=== PATIENT | male | born 1955 | race Hispanic/Latino ===

== ENCOUNTER 2020-01-13 11:00 | Inpatient (IN) | payer BC ==
[2020-01-13 15:04] VITALS: BMI 28.8
[2020-01-19] MEDS ORDERED: Sodium Chloride 0.9% 100 ML ONE (10:02)
[2020-01-19] MEDS ORDERED: Tranexamic Acid 1,000 MG/10 ML VIAL ONE (10:02)
[2020-01-19] MEDS ORDERED: Vancomycin 1.5 GRAM/300 ML BAG ONE (10:02)
[2020-01-19] MEDS ORDERED: Ondansetron PF 4 MG/2 ML Vial ONE (10:32)
[2020-01-19] MEDS ORDERED: Lidocaine 1% PF 5 ML VIAL ONE (10:32)
[2020-01-19] MEDS ORDERED: Metoclopramide HCl 10 MG/2 ML VIAL ONE (10:32)
[2020-01-19] MEDS ORDERED: Ketorolac Tromethamine 30 MG/ML VIAL ONE (10:32)
[2020-01-19] MEDS ORDERED: Bupivacaine HCl 0.5%/Epinephrine 1:200,000/PF 30 ml Vial ONE (10:32)
[2020-01-19] MEDS ORDERED: PROPOFOL 200 MG/20 ML VIAL ONE (10:32)
[2020-01-19] MEDS ORDERED: Ropivacaine 0.2% HCl/PF (40 MG/20 ML VIAL) ONE (10:32)
[2020-01-19] MEDS ORDERED: Fentanyl 100 MCG/2 ML VIAL ONE ×6 (10:50→17:27)
[2020-01-19] MEDS ORDERED: Midazolam HCl 2 mg/2 ml Vial ONE (10:50)
[2020-01-19 11:17] LABS: PTT 27.2 sec (22.9-36.1); Prothrombin Time 13.1 sec (12.0-14.7)
[2020-01-19] MEDS ORDERED: traMADol HCl 50 MG TAB PO PRN ×2 (11:59→15:10)
[2020-01-19] MEDS ORDERED: Fentanyl 100 MCG/2 ML VIAL SLOW IVP PRN ×2 (11:59)
[2020-01-19] MEDS ORDERED: Zolpidem Tartrate 5 MG TAB PO PRN ×3 (11:59→15:10)
[2020-01-19] MEDS ORDERED: Promethazine HCl 25 MG/ML VIAL IM PRN ×4 (11:59→15:10)
[2020-01-19] MEDS ORDERED: Ondansetron PF 4 MG/2 ML Vial IVP PRN ×3 (11:59→15:10)
[2020-01-19] MEDS ORDERED: diphenhydrAMINE 25 MG CAP PO PRN ×2 (11:59→12:01)
[2020-01-19] MEDS ORDERED: Acetaminophen 325 MG TAB PO PRN ×3 (11:59→15:10)
[2020-01-19] MEDS ORDERED: oxyCODONE/Acetaminophen 5 mg/325 mg Tablet PO PRN (12:02)
[2020-01-19] MEDS ORDERED: Ketorolac Tromethamine 30 MG/ML VIAL IVP SCH (14:00)
[2020-01-19] MEDS ORDERED: Promethazine HCl 25 MG/ML VIAL SLOW IVP PRN (14:47)
[2020-01-19] MEDS ORDERED: Meperidine HCl/PF 25 MG/ML VIAL SLOW IVP PRN (14:47)
[2020-01-19] MEDS ORDERED: PACU-Morphine 4MG/ML VIAL SLOW IVP PRN (14:47)
[2020-01-19] MEDS ORDERED: HYDROcodone/Acetaminophen 10/325 mg Tablet PO PRN ×2 (15:10)
[2020-01-19] MEDS ORDERED: Ropivacaine 0.2% 550 ML 550 ML NERVE BLCK SCH (15:10)
[2020-01-19] MEDS ORDERED: Fentanyl 100 MCG/2 ML VIAL IV PRN (15:11)
[2020-01-19] MEDS ORDERED: HYDROmorphone 2 MG/ML VIAL ONE ×2 (15:22→15:36)
--- NOTE | 2020-01-19 16:06 | RAD ---
XR Knee Lt 2 View History: Postop total knee arthroplasty Comparison: None. Findings: Satisfactory appearance left total knee arthroplasty and patellar resurfacing. Expected pos toperative gas and edema. Impression: Satisfactory postoperative appearance.
--- NOTE | 2020-01-19 18:30 | OP ---
DATE OF PROCEDURE: 01/19/2020 PROCEDURE PERFORMED: Left total knee arthroplasty using Orestes Triathlon 5 femur, 5 tibia, 9 mm CS X3 polyethylene, and an A32 patella. LINUX SYSTEM ENGINEER: Tigre Andujar PA-C ESTIMATED BLOOD LOSS: Minimal. SPECIMEN: None. DRAINS: None. COMPLICATION: None. PROCEDURE IN DETAIL: After informed consent was obtained in the preoperative holding area, the patient was taken to the operative suite where general anesthesia was induced. Once adequate level of general anesthesia was obtained, the patient was positioned and a well-padded tourniquet was placed around the left proximal thigh. The left lower extremity was then prepped and draped in the usual sterile fashion. Prior to exsanguination, a time-out was called and all members of the surgical team agreed upon site, surgeon, and patient. The extremity was then exsanguinated and the tourniquet was raised. A midline longitudinal incision was then made directly over the patella extending 2 fingerbreadths above the superior pole of the patella and 2 fingerbreadths inferior to the inferior patellar pole of the patella. Deeper subcutaneous layers were dissected sharply and local bleeding was controlled with Bovie electrocautery. A quad tendon longitudinal split was then made sharply and a median parapatellar arthrotomy was carried out both sharp and with Bovie electrocautery, carried down to 1 fingerbreadth medial to the tibial tubercle. The knee was then placed into flexion and the patella was everted nicely, and a copious fat pad ectomy was performed allowing for greater exposure of the tibia. The computer-assisted distal femoral fiducial was then placed and pinned firmly, and the distal femoral cutting guide was pinned firmly into place. The oscillating saw was then used to remove the appropriate amount of bone. The 4-in-1 cutting block was then placed on the distal femur and the oscillating saw was used to remove the appropriate amount of bone off the anterior, posterior, and chamfer cuts. After completion of bone cuts, the anterior cruciate ligament was resected sharply and the posterior cruciate ligament retractor was placed and the tibia was subluxed for better exposure. Partial meniscectomies were carried out, and the tibial computer-assisted fiducial was pinned, and the cutting guide was placed. Oscillating saw was then used to remove the bone, with Hohmann retractors used to take care and protect the collateral ligaments. After the tibial resection was performed, a laminar still worker helper was placed in between the freshened bone cuts. The knee placed at 90 degrees and further bilateral meniscectomies were carried out, and the curved osteotome and curettage were used to remove any excess bone spurs in the posterior compartment. The trial femoral component, tibial baseplate were placed with the appropriate polyethylene trial insert with an appropriate polyethylene spacer and patellar button. The knee was taken through full range of motion with flexion and extension from 0 to 90 degrees and patellar broach squarely in the trochlea without any squinting or subluxation noted. The knee was also stable to varus and valgus stressing at 0, 15, 45, and 90 degrees of flexion. The drawer was negative. All trial components were then removed and the keel punch was used to provide the appropriate defect in the tibia with a mallet. The freshened bone cuts were copiously irrigated with pulsatile lavage of about 1.5 L to remove all excess debris. The freshened bone cuts were then dried with suction and lap sponge. The knee was placed in flexion and retractors were placed to provide access to all bone cuts. Tobramycin-impregnated methyl methacrylate cement was then placed on the freshened bone cuts and implants which were malleted firmly into place. Curettage and [place] elevators were used to remove any excess bone cement. The knee was placed into full extension and the patellar button was placed under compression, and the cement was allowed to cure. Once completed, the components were again taken through full range of motion and copious irrigation of the knee was carried out with another liter of normal saline. All components were inspected fully with full range of motion and varus and valgus stressing. There was no laxity noted and full extension was observed clinically. Primary closure was accomplished with #2 interrupted Vicryl stitch of the arthrotomy defect. This was oversewn with a #2 running Quill barbed stitch. The gravitational platelet system was then injected into the arthrotomy prior to closure. The subcutaneous layer was then closed with a running 0 barbed Monocryl stitch and skin closure accomplished with a running subcuticular 3-0 Monocryl barbed Quill stitch and augmented with cement on the skin. Tourniquet was lowered. Good spontaneous return of distal pulses was noted clinically and a sterile dressing was applied to the incision. The procedure was terminated without any complications. The patient was awakened in the operative suite and the patient was taken to the recovery room in stable condition. Job ID: [id number]
[2020-01-19] MEDS: Sodium Chloride 0.9% 1,000 ML IV SCH ×3 (20:35→23:36)
[2020-01-19] MEDS: CEFAZOLIN 2 GM in Premix Bag 1 BAG IVPB SCH (20:37)
[2020-01-19] MEDS: Ketorolac Tromethamine 30 MG/ML VIAL IVP SCH ×2 (20:38→23:37)
[2020-01-19] MEDS: Aspirin 81 mg Enteric Coated Tablet PO SCH (20:38)
[2020-01-19] MEDS: Atorvastatin Calcium 20 MG TAB PO SCH (20:38)
[2020-01-19] MEDS: glyBURIDE 2.5 MG TAB PO SCH (20:44)
[2020-01-19] MEDS: metFORMIN 500 MG TAB PO SCH (20:44)
[2020-01-19] MEDS ORDERED: Senokot S 8.6-50 MG TAB PO SCH (21:00)
[2020-01-19] MEDS ORDERED: Aspirin 81 mg Enteric Coated Tablet PO SCH (21:00)
[2020-01-19] MEDS ORDERED: Ferrous Gluconate 324 MG TAB PO SCH (21:00)
[2020-01-20] MEDS: CEFAZOLIN 2 GM in Premix Bag 1 BAG IVPB SCH (02:18)
[2020-01-20] MEDS: traMADol HCl 50 MG TAB PO PRN ×4 (02:23→23:03)
[2020-01-20 05:12] LABS: Hemoglobin 10.7 g/dL (14.0-18.0); Mean Corpuscular HGB CONC 31.7 g/dL (32.0-36.0); Mean Corpuscular Hemoglobin 28.3 pg (27.0-31.0); Mean Corpuscular Volume 89.3 fL (78.0-98.0); Platelet Count 286 thou/uL (130-400); RBC Distribution Width 13.2 % (11.5-14.5); Red Blood Cell (RBC) Count 3.79 mill/uL (4.70-6.10)
[2020-01-20] MEDS: Ketorolac Tromethamine 30 MG/ML VIAL IVP SCH ×4 (06:02→23:02)
[2020-01-20] MEDS: Allopurinol 100 MG TAB PO SCH (08:31)
[2020-01-20] MEDS: Aspirin 81 mg Enteric Coated Tablet PO SCH ×2 (08:31→20:09)
[2020-01-20] MEDS: Senokot S 8.6-50 MG TAB PO SCH ×2 (08:31→20:10)
[2020-01-20] MEDS: Multivitamin W/ Minerals 1 TAB PO SCH (08:31)
[2020-01-20] MEDS: Losartan 25 MG TAB PO SCH (08:31)
[2020-01-20] MEDS: Ferrous Gluconate 324 MG TAB PO SCH ×2 (08:31→16:34)
[2020-01-20] MEDS: metFORMIN 500 MG TAB PO SCH ×2 (08:32→16:34)
[2020-01-20] MEDS: glyBURIDE 2.5 MG TAB PO SCH ×2 (08:32→16:35)
[2020-01-20] MEDS: Sodium Chloride 0.9% 1,000 ML IV SCH ×2 (08:35→18:37)
[2020-01-20] MEDS ORDERED: Multivitamin W/ Minerals 1 TAB PO SCH (09:00)
[2020-01-20] MEDS ORDERED: Non-Formulary Item 1 EACH (Aspirin 325 MG) PO SCH (09:00)
--- NOTE | 2020-01-20 11:19 | PDOC.HOSPP ---
- Subjective Encounter Date: 01/20/20 Encounter Time: 11:15 Subjective: Consulted for general med mgmt s/p L TKA POD #1. Hx of DM/HTN/CVA/Gout. Some L knee pain and working with PT. No CP/SOB. - Objective Vital Signs & Weight: Vital Signs (12 hours) Temp Pulse Resp BP Pulse Ox 01/20/20 08:15 98.5 F 62 14 117/63 94 L 01/20/20 03:42 98.4 F 62 20 124/70 95 01/19/20 23:48 98.2 F 67 18 118/69 95 Weight Weight 213 lb I&O: 01/19/20 01/20/20 01/21/20 06:59 06:59 06:59 Intake Total 740 Output Total 900 Balance -160 Result Diagrams: 01/20/20 04:45 Additional Labs: Laboratory Tests 01/13/20 01/13/20 11:00 11:00 Sodium 141 Potassium 4.5 Chloride 105 Carbon Dioxide 26 Anion Gap 15 BUN 22 Creatinine 1.22 Glucose 95 Calcium 9.4 COVID-19 PCR Not Detected EKG Reviewed by me: Yes (EKG - NSR, no acute changes) Hospitalist ROS - Medication Medications: Active Medications Generic Name Dose Route Start Last Admin Trade Name Freq PRN Reason Stop Dose Admin Allopurinol 100 mg 01/20/20 09:00 01/20/20 08:31 Zyloprim PO 100 mg DAILY JANET Administration Aspirin 81 mg 01/19/20 21:00 01/20/20 08:31 Ecotrin PO 81 mg BID JANET Administration Atorvastatin Calcium 20 mg 01/19/20 21:00 01/19/20 20:38 Lipitor PO 20 mg HS JANET Administration Ferrous Gluconate 324 mg 01/20/20 08:00 01/20/20 08:31 Fergon PO 324 mg BID-WM JANET Administration Glyburide 1.25 mg 01/19/20 16:30 01/20/20 08:32 Micronase PO 1.25 mg BID-AC JANET Administration Sodium Chloride 1,000 mls @ 100 mls/hr 01/19/20 12:00 01/20/20 08:35 Normal Saline 0.9% IV Not Given .Q10H JANET Iron/Minerals/Multivitamins 1 tab 01/20/20 09:00 01/20/20 08:31 Theragran M PO 1 tab DAILY JANET Administration Ketorolac Tromethamine 30 mg 01/19/20 18:00 01/20/20 11:04 Toradol IVP 01/21/20 12:01 30 mg Q6HR JANET Administration Losartan Potassium 12.5 mg 01/20/20 09:00 01/20/20 08:31 Cozaar PO 12.5 mg DAILY JANET Administration Metformin HCl 1,000 mg 01/19/20 17:00 01/20/20 08:32 Glucophage PO 1,000 mg BID-WM JANET Administration Senna/Docusate Sodium 2 tab 01/20/20 09:00 01/20/20 08:31 Senokot S PO 2 tab BID JANET Administration Tramadol HCl 100 mg 01/19/20 15:10 01/20/20 11:05 Ultram PO 100 mg Q6H PRN Administration Moderate Pain 4-6 - Exam General Appearance: NAD, awake alert Eye: PERRL, anicteric sclera ENT: normocephalic atraumatic, no oropharyngeal lesions Neck: supple, symmetric, no JVD, no thyromegaly, no lymphadenopathy Heart: RRR, no murmur, no gallops, no rubs, normal peripheral pulses Heart - other findings: S1, S2 Respiratory: CTAB, no wheezes, no rales, no ronchi, normal chest expansion, no tachypnea Gastrointestinal: soft, non-tender, non-distended, normal bowel sounds, no palpable masses Extremities: no cyanosis Extremities - other findings: L knee with surgical incision intact, mild edema Skin: normal turgor Neurological: cranial nerve grossly intact, no new deficit Musculoskeletal: normal tone, normal strength, no muscle wasting Psychiatric: normal affect, A&O x 3 Hosp A/P (1) DM II (diabetes mellitus, type II), controlled Code(s): E11.9 - TYPE 2 DIABETES MELLITUS WITHOUT COMPLICATIONS Status: Chronic Plan: ISS, resume home diabetic regimen, ADA (2) HTN (hypertension) Code(s): I10 - ESSENTIAL (PRIMARY) HYPERTENSION Status: Chronic Qualifiers: Hypertension type: essential hypertension Qualified Code(s): I10 - Essential (primary) hypertension Plan: Resume Losartan, serial BP monitoring (3) Gout Code(s): M10.9 - GOUT, UNSPECIFIED Status: Chronic Plan: Allopurinol, supportive mgmt (4) Status post left knee replacement Code(s): Z96.652 - PRESENCE OF LEFT ARTIFICIAL KNEE JOINT Status: Acute Plan: POD #1, pain control, Joint U protocol, OOB with PT, DVT ppx - Plan PT/OT, social media strategist, incentive spirometry, out of bed/ambulate, DVT proph w/ SCDs Stable currently Continue ISS/Glyburide/Metformin OOB with PT Pain control as needed Incentive spirometry ASA 81mg po BID Likely home in 24h Thank you for the consult. Will continue to follow with primary service.
--- NOTE | 2020-01-20 12:21 | PRG ---
DATE OF SERVICE: 01/20/2020 SUBJECTIVE: Sean is a 64-year-old male, postop day 1 from a left total knee arthroplasty. He is doing relatively well. He has no complaints. He ambulated about 60 feet yesterday without pain. OBJECTIVE: VITAL SIGNS: Temperature 98.6 pulse 71, respiratory rate 16, and blood pressure 116/69. GENERAL: He is alert and oriented to person, place, time, and situation. Responsive and appropriate with examiner. MUSCULOSKELETAL: His incision is clean and closed. No erythema. No malrotation or shortening. LABORATORY DATA: Hemoglobin and hematocrit of 10.7 and 33.8. IMPRESSION: 64-year-old male, postop day 1 left total knee arthroplasty, doing well. PLAN: Continue current care. Probable discharge home tomorrow. Job ID: [id number]
[2020-01-20] MEDS: oxyCODONE/Acetaminophen 5 mg/325 mg Tablet PO PRN (20:09)
[2020-01-20] MEDS: Atorvastatin Calcium 20 MG TAB PO SCH (20:10)
[2020-01-21] MEDS: oxyCODONE/Acetaminophen 5 mg/325 mg Tablet PO PRN ×3 (04:01→13:37)
[2020-01-21] MEDS: Ketorolac Tromethamine 30 MG/ML VIAL IVP SCH ×2 (05:16→13:24)
[2020-01-21] MEDS: Sodium Chloride 0.9% 1,000 ML IV SCH ×2 (06:35→13:24)
[2020-01-21] MEDS: glyBURIDE 2.5 MG TAB PO SCH (06:37)
[2020-01-21] MEDS: Aspirin 81 mg Enteric Coated Tablet PO SCH (08:30)
[2020-01-21] MEDS: Senokot S 8.6-50 MG TAB PO SCH (08:30)
[2020-01-21] MEDS: Multivitamin W/ Minerals 1 TAB PO SCH (08:31)
[2020-01-21] MEDS: Allopurinol 100 MG TAB PO SCH (08:31)
[2020-01-21] MEDS: metFORMIN 500 MG TAB PO SCH (08:31)
[2020-01-21] MEDS: Ferrous Gluconate 324 MG TAB PO SCH (08:31)
[2020-01-21] MEDS: Losartan 25 MG TAB PO SCH (08:31)
[2020-01-21 11:49] VITALS: BP 117/64; TEMP 98.4
== END 2020-01-21 14:34 | disposition home or self-care (01) | DRG 470 ==
LOC: SURG A 01-19 09:38 → SJJU 01-19 19:12
PROVIDERS: ADMIT Orthopaedic Surgery; ATTEND Orthopaedic Surgery
PROC: 0SRD0J9 Replacement of Left Knee Joint with Synthetic Substitute, Cemented, Open Approach (ICD-10-PCS; principal; 2020-01-19)
DX: M17.12 Unilateral primary osteoarthritis, left knee (principal); E11.9 Type 2 diabetes mellitus without complications; E78.5 Hyperlipidemia, unspecified; E78.00 Pure hypercholesterolemia, unspecified; M10.9 Gout, unspecified; Z85.46 Personal history of malignant neoplasm of prostate; Z79.82 Long term (current) use of aspirin; Z79.84 Long term (current) use of oral hypoglycemic drugs; Z87.891 Personal history of nicotine dependence
CPT/HCPCS: 36415; 36416; 85027; 85610; 85730; 88305; 89060; A4306; C1713; C1776; J0670; J0690; J1170; J1885; J2250; J2405; J2704; J2765; J2795; J3010; J3370; J3490